=== PATIENT | male | born 1970 | race Caucasian/White ===

== ENCOUNTER 2017-02-04 16:17 | Emergency (ER) | payer OTHER ==
[~2017-02-04] VITALS: Ht 180.3 cm; Wt 90.0 kg
[~2017-02-04 16:17] MED LIST: 1-ME1LIQ PO; ORPH100T PO; PERC5TAB12 PO
[2017-02-04 16:19] VITALS: BP 199/118; PULSE 82; RESP 24; TEMP 97.2; O2SAT 100
[2017-02-04] MEDS ORDERED: SODIUM CHLOR 0.9% 1000 ML INJ 1,000 ML IV SCH (17:16)
[2017-02-04 17:18] LABS: AUTOMATED NEUTROPHIL # 4.3 TH/MM3 (1.8-7.7); BASOPHIL % 0.4 % (0.0-2.0); EOSINOPHIL # 0.2 TH/MM3 (0-0.4); EOSINOPHIL % 2.4 % (0.0-4.0); HEMATOCRIT 43.9 % (39.0-51.0); HEMO FLAGS DIFF FINAL; LYMPH % 22.4 % (9.0-44.0); LYMPHOCYTE # 1.5 TH/MM3 (1.0-4.8); MEAN CELL VOLUME 77.9 FL (80.0-100.0); MEAN CORPUSCULAR HEMOGLOBIN 26.1 PG (27.0-34.0); MEAN CORPUSCULAR HGB CONC 33.5 % (32.0-36.0); MONO % 9.3 % (0.0-8.0); NEUT % 65.5 % (16.0-70.0); PLATELET COUNT 242 TH/MM3 (150-450); RED BLOOD COUNT 5.64 MIL/MM3 (4.50-5.90); RED CELL DISTRIBUTION WIDTH 13.9 % (11.6-17.2); WHITE BLOOD COUNT 6.5 TH/MM3 (4.0-11.0)
[2017-02-04 17:20] LABS: BLOOD, URINE LARGE (NEG); COMMENT (UR) CULT NOT INDICATED; CULTURE IF INDICATED CULT NOT INDICATED; GLUCOSE,URINE NEG (NEG); KETONE, URINE NEG (NEG); MUCUS URINE MANY /lpf (OCC); NITRITE,URINE NEG (NEG); URINE COLOR YELLOW (YELLW/STRAW)
--- NOTE | 2017-02-04 17:20 | PD ---
HPI Chief Complaint: Complaint Time Seen by Provider: 16:59 Travel History International Travel<30 days: No Contact w/Intl Traveler<30days: No Traveled to known affect area: No History of Present Illness HPI 38-year-old male here for evaluation of left lower quadrant abdominal pain. The patient has been expressing this pain intermittently throughout the day today. He describes dysuria. Pain is pressure-like, intermittent, no modifying factors. No history of abdominal surgeries. No hematuria. He had a normal bowel movement earlier today. No diarrhea, melena, or hematochezia. Reports history of kidney stones, but states this pain feels different. PFSH Past Medical History Heart Rhythm Problems: No Cardiac Catheterization: No Cardiovascular Problems: Yes (hemocreotocis) High Cholesterol: No Diabetes: No Diminished Hearing: No Hypertension: Yes Kidney Stones: Yes Past Surgical History Coronary Artery Bypass Graft: No Genitourinary Surgery: Yes ([place] SURGICALLY REMOVED, LITHOTRIPSY.) Social History Alcohol Use: Yes (1 DRINK EVERYOTHER DAY) Tobacco Use: No Substance Use: No Allergies-Medications (Allergen,Severity, Reaction): Coded Allergies: No Known Allergies (Verified , 02/13/15) Reported Meds & Prescriptions Reported Meds & Active Scripts Active Percocet 5-325 mg (Oxycodone/Acetaminophen) Oxycodone 5/325 Acetaminophen Tab 1 Tab PO Q6H PRN Norflex (Orphenadrine Citrate) 100 Mg [place] 100 Mg PO BID Reported Amlodipine Besylate 10 mg (Amlodipine Besylate) 10 Mg Tab 1 Tab PO DAILY Review of Systems Except as stated in HPI: all other systems reviewed are Neg Physical Exam Narrative GENERAL: Well-developed, well-nourished, comfortable, no acute distress. SKIN: Focused skin assessment warm/dry. No rash. HEAD: Atraumatic. Normocephalic. EYES: Pupils equal and round. No scleral icterus. No injection or drainage. ENT: Mucous membranes pink and moist. CARDIOVASCULAR: Regular rate and rhythm. RESPIRATORY: No accessory muscle use. Clear to auscultation. Breath sounds equal bilaterally. GASTROINTESTINAL: Abdomen soft, nondistended. Mild left lower quadrant and suprapubic tenderness without peritoneal signs. Rest of abdomen is soft and nontender. Normal bowel sounds. No hernias. MUSCULOSKELETAL: No obvious deformities. No clubbing. No cyanosis. No edema. NEUROLOGICAL: Awake and alert. No obvious cranial nerve deficits. Motor grossly within normal limits. Normal speech. PSYCHIATRIC: Appropriate mood and affect; insight and judgment normal. Data Data Last Documented VS Vital Signs Date Time Temp Pulse Resp B/P Pulse Ox O2 Delivery O2 Flow Rate FiO2 02/04/17 17:23 16 98 Room Air 02/04/17 16:19 97.2 82 199/118 Orders Complete Blood Count With Diff (02/04/17 16:30) Basic Metabolic Panel (Bmp) (02/04/17 16:30) Urinalysis - C+S If Indicated (02/04/17 16:30) Comprehensive Metabolic Panel (02/04/17 17:16) Prothrombin Time / Inr (Pt) (02/04/17 17:16) Act Partial Throm Time (Ptt) (02/04/17 17:16) Ct Abd/Pel W Iv Contrast(Rout) (02/04/17 17:16) Iv Access Insert/Monitor (02/04/17 17:16) Ecg Monitoring (02/04/17 17:16) Oximetry (02/04/17 17:16) Sodium Chlor 0.9% 1000 Ml Inj (Ns 1000 M (02/04/17 17:16) Sodium Chloride 0.9% Flush (Ns Flush) (02/04/17 17:30) Iohexol 350 Inj (Omnipaque 350 Inj) (02/04/17 18:05) Ibuprofen (Motrin) (02/04/17 19:00) Labs Laboratory Tests Test 02/04/17 02/04/17 02/04/17 16:45 17:05 17:20 Urine Color YELLOW Urine Turbidity CLEAR Urine pH 6.0 Urine Specific [place] 1.027 Urine Protein TRACE mg/dL Urine Glucose (UA) NEG mg/dL Urine Ketones NEG mg/dL Urine Occult Blood LARGE Urine Nitrite NEG Urine Bilirubin NEG Urine Urobilinogen LESS THAN 2.0 MG/DL Urine Leukocyte Esterase NEG Urine RBC /hpf Urine WBC 2 /hpf Urine Mucus MANY /lpf Microscopic Urinalysis Comment CULT NOT INDICATED White Blood Count 6.5 TH/MM3 Red Blood Count 5.64 MIL/MM3 Hemoglobin 14.7 GM/DL Hematocrit 43.9 % Mean Corpuscular Volume 77.9 FL Mean Corpuscular Hemoglobin 26.1 PG Mean Corpuscular Hemoglobin 33.5 % Concent Red Cell Distribution Width 13.9 % Platelet Count 242 TH/MM3 Mean Platelet Volume 8.5 FL Neutrophils (%) (Auto) 65.5 % Lymphocytes (%) (Auto) 22.4 % Monocytes (%) (Auto) 9.3 % Eosinophils (%) (Auto) 2.4 % Basophils (%) (Auto) 0.4 % Neutrophils # (Auto) 4.3 TH/MM3 Lymphocytes # (Auto) 1.5 TH/MM3 Monocytes # (Auto) 0.6 TH/MM3 Eosinophils # (Auto) 0.2 TH/MM3 Basophils # (Auto) 0.0 TH/MM3 CBC Comment DIFF FINAL Differential Comment Sodium Level 141 MEQ/L 140 MEQ/L Potassium Level 4.1 MEQ/L 3.9 MEQ/L Chloride Level 106 MEQ/L 108 MEQ/L Carbon Dioxide Level 29.4 MEQ/L 24.7 MEQ/L Anion Gap 6 MEQ/L 7 MEQ/L Blood Urea Nitrogen 22 MG/DL 23 MG/DL Creatinine 1.34 MG/DL 1.29 MG/DL Estimat Glomerular Filtration 57 ML/MIN 59 ML/MIN Rate Random Glucose 89 MG/DL 89 MG/DL Calcium Level 9.2 MG/DL 8.9 MG/DL Prothrombin Time 11.8 SEC Prothromb Time International 1.1 RATIO Ratio Activated Partial 25.2 SEC Thromboplast Time Total Bilirubin 0.3 MG/DL Aspartate Amino Transf 17 U/L (AST/SGOT) Alanine Aminotransferase 26 U/L (ALT/SGPT) Alkaline Phosphatase 50 U/L Total Protein 6.7 GM/DL Albumin 3.7 GM/DL [facility] Medical Decision Making Medical Screen Exam Complete: Yes Emergency Medical Condition: Yes Differential Diagnosis Colitis, diverticulitis, cystitis, UTI, nephrolithiasis, ureterolithiasis, Narrative Course Initial vital signs show heart rate 82, blood pressure 199/118, pulse ox 100% on room air, oral temp of 97.2F. CBC is essentially unremarkable. CMP is remarkable for BUN 23, creatinine 1.29, GFR 39, otherwise unremarkable. UA shows large occult blood, many mucus, not suggestive of UTI. CT abdomen pelvis: CONCLUSION: 1. No acute abnormality to explain the patient's pain. 2. Mildly complex 2.4 cm cyst involving the right kidney consistent with a Bosniak class II cyst. Patient was made aware of all findings. He is resting comfortably. He reports that he is aware of renal cyst that was found incidentally on an ultrasound couple years ago. Currently his pain is much improved. He is made aware of hematuria and I stressed the importance of following up with his primary care physician to make sure that this resolves. Patient informed on when to return to the emergency department. He verbalizes understanding and agreement with plan. Diagnosis Primary Impression: Abdominal pain Qualified Code: R10.32 - Left lower quadrant pain Additional Impression: Hematuria Referrals: Primary Care Physician 3 days Additional Instructions: Follow-up with your primary care physician this week. Return to the emergency department for worsening symptoms or any other concerns. Scripts Phenazopyridine (Pyridium)100 Mg [id number] Mg PO Q8H PRN (DYSURIA) #15 TAB Ref 0 Prov:Harsh Capps MD 02/04/17 Disposition: 01 DISCHARGE HOME Condition: Stable Harsh Capps MD Feb 04, 2017 17:20
[2017-02-04 17:23] VITALS: RESP 16; O2SAT 98
[2017-02-04] MEDS ORDERED: SODIUM CHLORIDE 0.9% FLUSH 10 ML FLUSH IV FLUSH PRN (17:30)
[2017-02-04 17:40] LABS: BICARBONATE 29.4 MEQ/L (21.0-32.0); POTASSIUM 4.1 MEQ/L (3.5-5.1)
[2017-02-04 17:42] LABS: APTT (PATIENT) 25.2 SEC (24.3-30.1); INTERNATIONAL NORMALIZED RATIO 1.1 RATIO; PROTHROMBIN TIME - PATIENT 11.8 SEC (9.8-11.6)
[2017-02-04 17:47] LABS: ANION GAP 7 MEQ/L (5-15); AST (GOT) 17 U/L (15-37); BICARBONATE 24.7 MEQ/L (21.0-32.0); BLOOD UREA NITROGEN 23 MG/DL (7-18); CHLORIDE 108 MEQ/L (98-107); GLOMERULAR FILTRATION RATE 59 ML/MIN (>89); POTASSIUM 3.9 MEQ/L (3.5-5.1); SODIUM (NA) 140 MEQ/L (136-145)
[2017-02-04 17:48] LABS: ALT (GPT) 26 U/L (12-78)
[2017-02-04 17:50] LABS: ALKALINE PHOSPHATASE 50 U/L (45-117); TOTAL BILIRUBIN ADULT 0.3 MG/DL (0.2-1.0)
[2017-02-04] MEDS ORDERED: IOHEXOL 350 MG/ML 10 ML VIAL (for RAD DIAG) IV ONE (18:05)
--- NOTE | 2017-02-04 18:37 | RADRPT ---
EXAM DATE/TIME: 02/04/2017 17:53 [facility] COMPARISON: No previous studies available for comparison. INDICATIONS : Evaluate for lower left abdominal pain. IV CONTRAST: 96 cc Omnipaque 350 (iohexol) IV ORAL CONTRAST: Prescribed oral contrast ingested. RADIATION DOSE: 9.96 CTDIvol (mGy) MEDICAL HISTORY : Cardiovascular disease. Hypertension. SURGICAL HISTORY : Lithotripsy ENCOUNTER: Initial ACUITY: 1 day PAIN SCALE: 6/10 LOCATION: Left lower quadrant abdomen. TECHNIQUE: Volumetric scanning of the abdomen and pelvis was performed. Using automated exposure control and ad justment of the mA and/or kV according to patient size, radiation dose was kept as low as reasonably achievable to obtain optimal diagnostic quality images. DICOM format image data is available electro nically for review and comparison. FINDINGS: LOWER LUNGS: The visualized lower lungs are clear. LIVER: Homogeneous density without lesion. A tiny cyst is seen involving the right lobe. There is no dilati on of the biliary tree. No calcified gallstones. SPLEEN: Normal size without lesion. PANCREAS: Within normal limits. KIDNEYS: Normal in size and shape. There is no mass, stone or hydronephrosis. A 2.4 cm mildly complex cyst is seen involving the midpole of the right kidney. 2 rounded areas of calcification are associated with this. No soft tissue mass or nodule observed. ADRENAL GLANDS: Within normal limits. VASCULAR: There is no aortic aneurysm. BOWEL/MESENTERY: The stomach, small bowel, and colon demonstrate no acute abnormality. There is no free intraperitone al air or fluid. ABDOMINAL WALL: Within normal limits. RETROPERITONEUM: There is no lymphadenopathy. BLADDER: No wall thickening or mass. REPRODUCTIVE: Within normal limits. INGUINAL: There is no lymphadenopathy or hernia. MUSCULOSKELETAL: Within normal limits for patient age. CONCLUSION: 1. No acute abnormality to explain the patient's pain. 2. Mildly complex 2.4 cm cyst involving the right kidney consistent with a Bosniak class II cyst. Riccardo Smart Jr., MD on February 04, 2017 at 18:31 Board Certified Radiologist. This report was verified electronically.
[2017-02-04] MEDS ORDERED: PHEN0.4T PO (18:59)
[2017-02-04] MEDS ORDERED: IBUPROFEN 600 MG TAB PO ONE (19:00)
== END 2017-02-04 19:24 | disposition home or self-care (01) ==
LOC: NEPD 16:17
DX: R10.32 Left lower quadrant pain (principal); R31.9 Hematuria, unspecified; R30.0 Dysuria; Z87.442 Personal history of urinary calculi
CPT/HCPCS: 74177; 80048; 80053; 81001; 85025; 85610; 85730; 96360; 99285; J7030; Q9967

== ENCOUNTER → 2017-02-08 | Outpatient (CLI) | payer OTHER ==
[~2017-02-08] MED LIST changes: +PHEN0.4T PO
[2017-02-08 09:19] LABS: BACTERIA, URINE RARE /hpf; BLOOD, URINE SMALL (NEG); GLUCOSE,URINE NEG (NEG); KETONE, URINE NEG (NEG); MUCUS URINE FEW /lpf (OCC); NITRITE,URINE NEG (NEG); PH, URINE 6.5 (5.0-8.5); URINE COLOR YELLOW (YELLW/STRAW)
[2017-02-08 10:07] LABS: BICARBONATE 25.7 MEQ/L (21.0-32.0); POTASSIUM 4.3 MEQ/L (3.5-5.1)
[2017-02-08 10:13] LABS: HDL CHOLESTEROL 50.2 MG/DL (40.0-60.0)
== END ==
LOC: CLAB 08:24
PROVIDERS: ATTEND Family Medicine
DX: Z00.00 Encounter for general adult medical examination without abnormal findings (principal)
CPT/HCPCS: 36415; 80048; 80061; 81001